=== PATIENT | female | born 1965 | race Caucasian/White ===

== ENCOUNTER 2021-03-28 15:18 | Outpatient (CLI) | payer OTHER, SELFPAY ==
--- NOTE | ~2021-03-28 | XR_ITS ---
EXAMINATION: XR ankle RT min 3V, XR tibia fibula RT 2V EXAM DATE: 03/28/2021 15:50 (accession [id number]), 03/28/2021 15:49 (accession [id number]) INDICATION: Injury lower leg. Initial encounter. pt c/o pain in right ankle wrapping anterior to pos terior on lateral side, throbbing, sharp pain when extended, rolled ankle x week and a half ago. TECHNIQUE: Right ankle frontal, lateral and oblique projections obtained and reviewed. Frontal and l ateral projections right tibia/fibula. There are no prior studies for comparison. FINDINGS: The right ankle mortise appears intact. Tibia and fibula are unremarkable. There are no acute fractures or dislocations identified. There is no subcutaneous gas. The soft tissue is unrema rkable. There are no radiopaque foreign bodies. IMPRESSION: 1. Right tibia fibula, ankle exam without acute osseous findings. Reviewed, dictated and finalized at location A. IMPRESSION: 1. Right tibia fibula, ankle exam without acute osseous findings.
== END 2021-03-28 15:19 ==
PROVIDERS: PCP Physician Assistant; Visit Provider Physician Assistant
DX: S69.91XA Unspecified injury of right wrist, hand and finger(s), initial encounter (principal); M67.969 Unspecified disorder of synovium and tendon, unspecified lower leg; X58.XXXA Exposure to other specified factors, initial encounter
CPT/HCPCS: 73590; 73610

== ENCOUNTER → 2021-07-22 13:48 | Outpatient (CLI) | payer OTHER, SELFPAY ==
--- NOTE | ~2021-07-22 | MM_ITS ---
EXAMINATION: MM screening [place] BI w alexis HISTORY: Screening mammogram TECHNIQUE: Craniocaudal and mediolateral oblique 3-D tomosynthesis images were obtained and synthetic 2-D images were generated. CAD analysis was submitted and interpreted. COMPARISON: , 01/17/2015 bilateral digital screening mammogram examinations BREAST PARENCHYMAL COMPOSITION: There are scattered areas of fibroglandular density. FINDINGS: There is stable fibroglandular asymmetry. There are occasional bilateral benign calcificati ons. There is no evidence of suspicious mass, calcification, or architectural distortion to suggest m alignancy in either breast. There has been no suspicious interval change. IMPRESSION: 1. No mammographic evidence of malignancy. 2. Recommend routine screening mammography in one year. BI-RADS Category 2: Benign finding(s). Reviewed, dictated and finalized at location A.
== END ==
PROVIDERS: PCP Physician Assistant; Visit Provider Physician Assistant
DX: Z12.31 Encounter for screening mammogram for malignant neoplasm of breast (principal)
CPT/HCPCS: 77063; 77067

== ENCOUNTER 2023-10-25 07:41 | Day surgery (SDC) | payer OTHER, SELFPAY ==
[2023-09-18 10:30] VITALS: BMI 25.9
[2023-10-02 10:50] VITALS: BMI 25.0
[2023-10-25 08:35] VITALS: BP 155/97; PULSE 68; RESP 20; TEMP 36.7; O2SAT 100
[2023-10-25] MEDS: LACTATED RINGERS 1,000 ML 150 ML IV CONT (08:52)
--- NOTE | 2023-10-25 09:19 | WPDANESEPPF ---
Anes - Initial Pre Proc Eval Procedure: Operation Date: 10/25/23 10:00 Proposed Procedures p Esophagogastroduodenoscopy - Rajat Laws MD Date/Time: 10/25/23 09:19 Surgeon: Rajat Laws MD Pre Op Diagnosis: Unspecified Abdominal Pain Patient Data Age: 58 Gender: F Height: 1.57 m Weight: 63.4 kg Last Vital Signs Temp 36.7 C 10/25/23 08:35 Pulse 68 10/25/23 08:35 Resp 20 10/25/23 08:35 BP 155/97 H 10/25/23 08:35 Pulse Ox 100 10/25/23 08:35 O2 Del Method Room Air 10/25/23 08:35 Allergies Allergy/AdvReac Type Severity Reaction Status Date / Time codeine Allergy Severe Nausea and Verified 10/25/23 08:40 Vomiting Home Medications Medication Instructions Recorded Confirmed Type albuterol sulfate 90 mcg/actuation 1 inh inhalation Q4H PRN Shortness 09/17/23 10/25/23 History aerosol inhaler Of Breath Or Wheezing pantoprazole 20 mg tablet,delayed 20 mg PO QAM 09/17/23 10/25/23 History release trazodone 50 mg tablet See Rx Instructions .Route .COMPLEX 10/02/23 10/25/23 History Patient hx anesthesia problems: none Family hx anesthesia problems: none Results Review: All pre-operative results and documents have been reviewed as part of the pre-operative evaluation. [facility] Past Medical History Medical History Abdominal pain Abnormal CT scan, gastrointestinal tract Nausea and vomiting Pancreatitis Tobacco use Surgical History Surgical History H/O hernia repair H/O: hysterectomy History of colon resection Status post right breast lumpectomy Family History Family History Other Diabetes mellitus Family history of malignant neoplasm Social History Social History Smoking packs per day: 1 Smoking cigarettes per day: 20.0 Years smoked: 15 Smoking pack-years: 15.00 Smoking status: Current every day smoker Tobacco type: cigarettes Alcohol intake: current Substance use: never Substance use type: does not use Living arrangements: with family Spiritual care concerns: No Anes - Eval Final PreProcedure Day of Procedure 10/25/23 09:19 Patient weight: overweight Heart: regular rate and rhythm Lungs: decreased breath sounds Airway: Mallampati scale class II Neurological: alert and oriented Last oral intake: >/= 8 hours ASA classification: III Emergent: no Anesthetic plan: proceed Anesthesia type and monitoring: general GIVS and standard monitoring Results Review: All pre-operative results and documents have been reviewed as part of the pre-operative evaluation. Informed Consent: The patient's anesthetic plan and its attendant risks and benefits were discussed with the patient/family/POA. Questions were solicited and answers provided to the satisfaction of the patient/family/POA.
--- NOTE | 2023-10-25 09:30 | PM.HPGS ---
History of Present Illness History of Present Illness Consent: Risks, benefits, and alternatives have been discussed and questions answered. Patient agrees to proceed with procedure. Chief complaint: Unspecified Abdominal Pain Narrative: Lynne Ronquillo is a 58 year old female presents for EGD. In June of [address] scan performed in [place] revealed pancreatitis but also associated duodenitis. EGD is requested to evaluate. Patient currently is pain free. Her symptoms have resolved. She does have a distant history of peptic ulcer disease. Currently maintained on pantoprazole 40mg p.o. daily. Patient presents today for follow-up examination to ensure no ulceration contributing to her pancreatitis. Review of Systems Review of Systems: Review of systems is noncontributory. PMFSH Past Medical History Medical History Abdominal pain Abnormal CT scan, gastrointestinal tract Nausea and vomiting Pancreatitis Tobacco use Surgical History Surgical History H/O hernia repair H/O: hysterectomy History of colon resection Status post right breast lumpectomy Family History Family History Other Diabetes mellitus Family history of malignant neoplasm Social History Social History Smoking packs per day: 1 Smoking cigarettes per day: 20.0 Years smoked: 15 Smoking pack-years: 15.00 Smoking status: Current every day smoker Tobacco type: cigarettes Alcohol intake: current Substance use: never Substance use type: does not use Living arrangements: with family Spiritual care concerns: No Meds Home Medications and Allergies Home Medications Medication Instructions Recorded Confirmed Type albuterol sulfate 90 mcg/actuation 1 inh inhalation Q4H PRN Shortness 09/17/23 10/25/23 History aerosol inhaler Of Breath Or Wheezing pantoprazole 20 mg tablet,delayed 20 mg PO QAM 09/17/23 10/25/23 History release trazodone 50 mg tablet See Rx Instructions .Route .COMPLEX 10/02/23 10/25/23 History Allergies Allergy/AdvReac Type Severity Reaction Status Date / Time codeine Allergy Severe Nausea and Verified 10/25/23 08:40 Vomiting Vital Signs Vital Signs - 24 hr 10/25/23 08:35 Temperature 98.0 F Pulse Rate 68 Respiratory Rate 20 Blood Pressure 155/97 H Pulse Oximetry 100 Oxygen Delivery Room Air Exam Narrative: Physical exam reveals patient to be alert. Vital signs stable. HEENT exam is unremarkable. Patient is anicteric. Lungs are clear to auscultation and to percussion.. Heart is without murmur or extra sounds. Abdomen bowel sounds are present soft nontender with no organomegaly. Digital external rectal exam is normal. Assessment and Plan Assessment and plan (1) Abnormal CT scan, gastrointestinal tract: Code(s): R93.3 - Abnormal findings on diagnostic imaging of other parts of digestive tract Status: Acute Assessment and Plan: History of abnormal CT scan suggesting duodenitis. Plan for EGD to evaluate more thoroughly. 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 Currently maintained on pantoprazole because of history of peptic ulcer disease. Further recommendations may be given after endoscopy.
[2023-10-25 10:26] VITALS: BP 119/66; PULSE 72; RESP 16; O2SAT 100
[2023-10-25 10:36] VITALS: BP 120/98; PULSE 74; RESP 16; O2SAT 100
--- NOTE | 2023-10-25 10:39 | WPDANESPN ---
Anes - Prog Note Post-Op Date/Time: 10/25/23 10:39 Cardiovascular status: normal Respiratory status: normal Airway patency: baseline Mental status: baseline Post-Op hydration status: normal Vital Signs: Last Vital Signs Temp 36.7 C 10/25/23 08:35 Pulse 72 10/25/23 10:26 Resp 16 10/25/23 10:26 BP 119/66 10/25/23 10:26 Pulse Ox 100 10/25/23 10:26 O2 Del Method Room Air 10/25/23 10:26 Pain Score (VAS): 0/10 I/O: Intake & Output 10/24/23 10/25/23 10/25/23 23:59 07:59 15:59 Intake Total 500 Balance 500 Patient Feedback: Patient satisfied with anesthetic care.
[2023-10-25 10:46] VITALS: BP 135/85; PULSE 70; RESP 16; O2SAT 100
== END 2023-10-25 11:00 | disposition home or self-care (01) ==
PROVIDERS: PCP Physician Assistant; Visit Provider Internal Medicine Gastroenterology
PROC: 0DJ08ZZ Inspection of Upper Intestinal Tract, Via Natural or Artificial Opening Endoscopic (ICD-10-PCS; CPT 43235; principal; 2023-10-25 10:00)
DX: R93.3 Abnormal findings on diagnostic imaging of other parts of digestive tract (principal)
CPT/HCPCS: 43239

== ENCOUNTER → 2023-10-31 15:57 | Outpatient (CLI) | payer OTHER, SELFPAY ==
--- NOTE | ~2023-10-31 | MM_ITS ---
EXAMINATION: MM screening [place] BI w alexis HISTORY: Screening TECHNIQUE: Craniocaudal and mediolateral oblique 3-D tomosynthesis images were obtained and synthetic 2-D images were generated. CAD analysis was submitted and interpreted. COMPARISON: No prior mammogram is available for comparison at this institution. BREAST PARENCHYMAL COMPOSITION: Not dense: There are scattered areas of fibroglandular density. FINDINGS: There is asymmetry in the subareolar location of the right breast. No mammographic evidence for malignancy in the left breast. IMPRESSION: 1. Right breast asymmetry. 2. Additional mammographic views and possible breast ultrasound are recommended. BI-RADS Category 0: Incomplete: Needs additional imaging evaluation. Reviewed, dictated and finalized at location A. IFIED ART THERAPIST IMPRESSION: 1. Right breast asymmetry. 2. Additional mammographic views and possible breast ultrasound are recommended . BI-RADS Category 0: Incomplete: Needs additional imaging evaluation.
== END ==
PROVIDERS: PCP Physician Assistant; Visit Provider Physician Assistant
DX: Z12.31 Encounter for screening mammogram for malignant neoplasm of breast (principal); R92.8 Other abnormal and inconclusive findings on diagnostic imaging of breast
CPT/HCPCS: 77063; 77067

== ENCOUNTER 2023-12-14 08:39 | Outpatient (CLI) | payer OTHER, SELFPAY ==
--- NOTE | ~2023-12-14 | MM_ITS ---
Corrected Report Order # Associated 12/17/2023 SLJ This report was recreated on 12/17/2023. Original report was signed by Jesus Field M.D. on 12/14/2023 10:19 CDT. EXAMINATION: MM tomosynthesis diagnostic RT; US breast RT complete HISTORY: Right breast asymmetry reported on 10/31/2023 screening mammogram examination TECHNIQUE: Additional 3-D tomosynthesis images of the right breast were performed and synthetic 2-D images were generated. CAD analysis was submitted and interpreted. High resolution complete right breast ultrasound examination including all 4 quadrants and subareolar area was performed. COMPARISON: 10/31/2023 bilateral screening mammogram FINDINGS: MAMMOGRAPHIC FINDINGS: No suspicious mass, architectural distortion, malignant calcification, skin thickening or retraction is noted. Multiple benign calcifications. ULTRASOUND: 10:00 10 cm from nipple: Irregular hypoechoic 3.2 mm mass. Given the irregular margins, ultrasound-guided biopsy is recommended. No other suspicious mass or shadowing is detected. IMPRESSION: 1. Irregular 3.2 mm mass at 10:00 10 cm from nipple 2. Ultrasound-guided biopsy of right breast 10:00 lesion is recommended BI-RADS category 4, suspicious findings. Reviewed, dictated and finalized at location A. MTDD
== END 2023-12-14 08:40 ==
LOC: MICIMG 08:40
PROVIDERS: PCP Physician Assistant; Visit Provider Physician Assistant
DX: R92.8 Other abnormal and inconclusive findings on diagnostic imaging of breast (principal); N63.10 Unspecified lump in the right breast, unspecified quadrant
CPT/HCPCS: 76641; 77061; 77065; G0279